=== PATIENT | female | born 1970 | race Caucasian/White ===

== ENCOUNTER 2016-12-10 09:01 | Day surgery (SDC) | payer OTHER ==
[~2016-12-10 09:01] MED LIST: LIDOCAINE MPF 2% - 5 ML (20 MG/1 ML) ONE; LIDOCAINE W/ SODIUM BICARB 0.5 ML SYR ONE; Lactated Ringers 1,000 ML PRIMARY IV ONE; MIDAZOLAM 5 MG/1 ML ONE; ROCURONIUM 10 MG/1 ML - 5 ML VIAL IVP ONE; Sodium Chloride 0.9% 100 ML IV ONE; fentaNYL Inj 250 MCG/5 ML VIAL ONE
[2016-12-10 09:15] LABS: BILIRUBIN,URINE NEGATIVE (NEG); CLARITY,URINE CLEAR (CLEAR); GLUCOSE, URINE (UA) NEGATIVE (NEG); LEUKOCYTE ESTERASE ,URINE NEGATIVE (NEG); NITRATE,URINE NEGATIVE (NEG); OCCULT BLOOD,URINE MODERATE (NEG); PROTEIN,URINE TRACE mg/dl (NEG); UROBILINOGEN,URINE 0.2 mg/dL (0.2)
[2016-12-10 09:16] LABS: URINE SPECIFIC GRAVITY - MAN 1.025
[2016-12-10 09:18] LABS: URINE SAMPLE TYPE CLEAN CATCH URINE
[2016-12-10 09:19] LABS: RBC,URINE 0-3 /hpf; SQUAMOUS EPITHELIAL CELL,UR MANY
[2016-12-10 09:42] LABS: HEMATOCRIT 32.5 % (37.0-47.0); HEMOGLOBIN 10.3 g/dL (12.0-16.0)
[2016-12-10] MEDS ORDERED: Opium-Belladonna 16.2-60mg 1 EACH SUPP.RECT RECTAL ONE ×3 (10:00→12:00)
[2016-12-10] MEDS ORDERED: LIDOCAINE HCL 2 % 10 ML JELLY URO-JECT TOPICAL ONE ×3 (10:00→12:05)
[2016-12-10] MEDS ORDERED: BUPIVACAINE 0.25% W/ EPI - 10 ML VIAL ONE (10:00)
[2016-12-10] MEDS ORDERED: DEXAMETHASONE SOD PHOSPHATE 4 MG/1 ML VIAL ONE (10:44)
[2016-12-10] MEDS ORDERED: ONDANSETRON 4 MG/2 ML VIAL ONE (10:48)
[2016-12-10] MEDS ORDERED: KETOROLAC 30 MG/1 ML VIAL ONE (10:48)
[2016-12-10] MEDS ORDERED: KETAMINE 100 MG/1 ML - 5 ML ONE (10:48)
[2016-12-10] MEDS ORDERED: HYDROmorphone 2 MG/1 ML ONE (10:48)
[2016-12-10] MEDS ORDERED: Lactated Ringers 1,000 ML PRIMARY IV ONE ×2 (11:12→11:50)
[2016-12-10] MEDS ORDERED: HYDROcodone-APAP 5 MG -325 MG TABLET PO PRN (12:11)
[2016-12-10] MEDS ORDERED: IBUPROFEN 800 MG TABLET PO PRN (12:11)
[2016-12-10] MEDS ORDERED: NORMAL SALINE 10 ML SYRINGE FLUSH IVP PRN (12:11)
[2016-12-10] MEDS ORDERED: Ondansetron ODT Tab 8 MG TAB PO PRN (12:11)
[2016-12-10] MEDS ORDERED: KETOROLAC 30 MG/1 ML VIAL IVP PRN (12:11)
--- NOTE | 2016-12-10 12:18 | OB.OP.NOTE ---
Operative Report Surgeon: Heber Knock Up Assembler: Juni Nick MD Anesthesia Type: General Anesthesia Provider: Kwaku Bonner CRNA Surgery Date: 12/10/16 Preoperative Diagnosis: MMR/Dysmenorrhea Postoperative Diagnosis: Same Procedure: da Kandice Hysterectomy/Bilateral Salpingectomy/Cystoscopy Estimated Blood Loss (mL): 50 Fluids: 3000 ml Complications: None Findings at Surgery: Slightly enlarged and boggy uterus. Normal ovaries and tubes. Dense scarring of the vesico-uterine junction. Minimal adhesions of omentum to the anterior abdominal wall just inferior to the umbilicus. No visible evidence of bowel, bladder, or ureter injury. At cystoscopy, both ureters were seen to eject urine , indicating ureteral patency and function. There was a bubble in the dome of the bladder. Indications for the Procedure: MMR/Dysmenorrhea Description of Procedure: See dictated operative report. Plan: Routine post op care and discharge to home.
[2016-12-10] MEDS ORDERED: HYDROcodone-APAP 5 MG -325 MG TABLET PO ONE (13:39)
[2016-12-10 14:46] VITALS: RESP 16
[2016-12-10 15:42] VITALS: TEMP 97.9
[2016-12-10] MEDS ORDERED: DOCUSATE 100 MG CAPSULE PO SCH (21:00)
== END 2016-12-10 15:32 | disposition home or self-care (01) ==
LOC: SDSC 09:01
PROVIDERS: ATTEND Obstetrics & Gynecology
DX: N92.1 Excessive and frequent menstruation with irregular cycle (principal); N94.6 Dysmenorrhea, unspecified; D25.9 Leiomyoma of uterus, unspecified
CPT/HCPCS: 52000; 58552; 81001; 84703; 85014; 85018; 85610; J0694; J1885; J2704; J3010; J1100; J1170; J2001; J2250; J2405; J7050; J7120

== ENCOUNTER → 2017-01-19 | Outpatient (CLI) | payer OTHER ==
[2017-01-19 17:36] LABS: BASOPHILS # (AUTO) 0.08 10*3/UL; EOSINOPHILS % (AUTO) 4.2 % (0-8); HEMATOCRIT 35.1 % (37.0-47.0); HEMOGLOBIN 11.2 g/dL (12.0-16.0); IMM GRAN % (AUTO) 0.1 % (0-5); IMM GRAN# (AUTO) 0.01 10*3/UL; LYMPHOCYTES # (AUTO) 2.57 10*3/uL; LYMPHOCYTES % (AUTO) 30.7 % (10-50); MEAN CORPUSCULAR HEMOGLOBIN 23.2 PG (27-31); MEAN CORPUSCULAR HGB CONC 31.9 g/dL (33-37); MONOCYTES # (AUTO) 0.87 10*3/UL (0.3-0.8); MONOCYTES % (AUTO) 10.4 % (5-15); NEUTROPHILS # (AUTO) 4.48 10*3/UL; NEUTROPHILS % (AUTO) 53.6 % (50-80); RDW COEFFICIENT OF VARIATION 16.4 % (11.5-14.5); RED BLOOD COUNT 4.83 10^6/uL (4.20-5.40); WHITE BLOOD COUNT 8.36 10^3/uL (4.8-10.8)
[2017-01-19 17:47] LABS: PLATELET MORPHOLOGY COMMENT NORMAL MORPHOLOGY (NORM)
[2017-01-20 05:09] LABS: PERCENT IRON SATURATION 7.8 % (14-50)
== END ==
LOC: LAB 17:21
PROVIDERS: ATTEND Internal Medicine
DX: D50.9 Iron deficiency anemia, unspecified (principal)
CPT/HCPCS: 36415; 82728; 83540; 83550; 85025

== ENCOUNTER → 2017-03-23 | Outpatient (CLI) | payer OTHER ==
[2017-03-23 19:35] LABS: MEAN CORPUSCULAR HEMOGLOBIN 25.3 PG (27-31); NEUTROPHILS # (AUTO) 4.87 10*3/UL
[2017-03-23 19:37] LABS: BASOPHILS # (AUTO) 0.12 10*3/UL; BASOPHILS % (AUTO) 1.4 % (0-1); EOSINOPHILS # (AUTO) 0.28 10*3/UL; EOSINOPHILS % (AUTO) 3.3 % (0-8); HEMATOCRIT 43.2 % (37.0-47.0); HEMOGLOBIN 14.3 g/dL (12.0-16.0); LYMPHOCYTES # (AUTO) 2.29 10*3/uL; MEAN CORPUSCULAR HGB CONC 33.1 g/dL (33-37); MEAN CORPUSCULAR VOLUME 76.5 FL (81-99); MEAN PLATELET VOLUME 9.2 FL (7.4-12.2); MONOCYTES # (AUTO) 0.93 10*3/UL (0.3-0.8); MONOCYTES % (AUTO) 10.9 % (5-15); NEUTROPHILS % (AUTO) 57.4 % (50-80); RED BLOOD COUNT 5.65 10^6/uL (4.20-5.40)
[2017-03-23 19:38] LABS: PLATELET MORPHOLOGY COMMENT NORMAL MORPHOLOGY (NORM); WBC MORPHOLOGY COMMENT NORMAL MORPHOLOGY (NORM)
[2017-03-23 19:42] LABS: RBC MORPHOLOGY COMMENT SEE COMMENTS (NORM)
== END ==
LOC: LAB 19:22
PROVIDERS: ATTEND Internal Medicine
DX: D50.9 Iron deficiency anemia, unspecified (principal)
CPT/HCPCS: 36415; 82728; 83540; 83550; 85025

== ENCOUNTER → 2017-06-22 | Outpatient (CLI) | payer OTHER ==
[2017-06-22 18:52] LABS: BASOPHILS # (AUTO) 0.06 10*3/UL; EOSINOPHILS % (AUTO) 4.8 % (0-8); HEMATOCRIT 40.1 % (37.0-47.0); HEMOGLOBIN 13.5 g/dL (12.0-16.0); LYMPHOCYTES # (AUTO) 1.83 10*3/uL; MEAN CORPUSCULAR HEMOGLOBIN 28.4 PG (27-31); MEAN CORPUSCULAR HGB CONC 33.7 g/dL (33-37); MEAN CORPUSCULAR VOLUME 84.2 FL (81-99); MEAN PLATELET VOLUME 9.4 FL (7.4-12.2); MONOCYTES # (AUTO) 0.45 10*3/UL (0.3-0.8); MONOCYTES % (AUTO) 7.2 % (5-15); NEUTROPHILS # (AUTO) 3.63 10*3/UL; NEUTROPHILS % (AUTO) 57.7 % (50-80); PLATELET MORPHOLOGY COMMENT NORMAL MORPHOLOGY (NORM); RBC MORPHOLOGY COMMENT NORMAL MORPHOLOGY (NORM); RED BLOOD COUNT 4.76 10^6/uL (4.20-5.40); WBC MORPHOLOGY COMMENT NORMAL MORPHOLOGY (NORM)
== END ==
LOC: LAB 18:32
PROVIDERS: ATTEND Internal Medicine
DX: D50.9 Iron deficiency anemia, unspecified (principal)
CPT/HCPCS: 36415; 82728; 83540; 83550; 85025

== ENCOUNTER 2018-09-16 18:35 | Observation (INO) ==
[2018-09-16] MEDS ORDERED: ASPIRIN 81 MG (BABY) CHEWABLE TABLET PO ONE (18:56)
[2018-09-16] MEDS ORDERED: Sodium Chloride 0.9% 1,000 ML PRIMARY IV ONE (18:56)
--- NOTE | 2018-09-16 18:59 | EKG ---
Measurements Intervals [place] Rate: 96 P: 66 ID: [id number] QRS: 66 QRSD: 86 T: 38 QT: 331 QTc: 385 Interpretive Statements SINUS RHYTHM Compared to ECG 11/05/2014 13:03:59 No significant changes Electronically Signed On 09-17-18 12:21:15 MDT by Tad Whitlock [id number]
[2018-09-16 19:02] LABS: BASOPHILS # (AUTO) 0.06 10*3/UL; BASOPHILS % (AUTO) 0.6 % (0-1); EOSINOPHILS # (AUTO) 0.14 10*3/UL; EOSINOPHILS % (AUTO) 1.3 % (0-8); Hematocrit [HCT] 43.2 % (37.0-47.0); Hemoglobin [HGB] 14.4 g/dL (12.0-16.0); LYMPHOCYTES # (AUTO) 2.32 10*3/uL; MEAN CORPUSCULAR HEMOGLOBIN 27.5 PG (27-31); MEAN CORPUSCULAR HGB CONC 33.3 g/dL (33-37); MEAN CORPUSCULAR VOLUME 82.6 FL (81-99); MEAN PLATELET VOLUME 9.7 FL (7.4-12.2); MONOCYTES # (AUTO) 0.77 10*3/UL (0.3-0.8); MONOCYTES % (AUTO) 7.4 % (5-15); NEUTROPHILS # (AUTO) 7.11 10*3/UL; NEUTROPHILS % (AUTO) 68.2 % (50-80); RED BLOOD COUNT 5.23 10^6/uL (4.20-5.40)
[2018-09-16 19:05] LABS: PLATELET MORPHOLOGY COMMENT NORMAL MORPHOLOGY (NORM); RBC MORPHOLOGY COMMENT NORMAL MORPHOLOGY (NORM); WBC MORPHOLOGY COMMENT NORMAL MORPHOLOGY (NORM)
[2018-09-16 19:11] LABS: BLOOD UREA NITROGEN 11 mg/dL (7-22); BUN/CREATININE RATIO 13.75 (6-20); SERUM ALBUMIN 4.5 g/dL (3.5-4.8)
--- NOTE | 2018-09-16 19:46 | DI ---
EXAM: XR Chest, 1 View CLINICAL HISTORY: ITS.REASON Chest Pain Physician Notes: Tech Comments: TECHNIQUE: Frontal view of the chest. COMPARISON: 08/11/14 FINDINGS: Lungs: Unremarkable. No consolidation. Pleural space: Unremarkable. No pneumothorax. Heart: Unremarkable. No cardiomegaly. Mediastinum: Unremarkable. Bones/joints: Unremarkable. IMPRESSION: No evidence of acute pulmonary disease
[2018-09-16] MEDS ORDERED: NITROGLYCERIN 0.4 MG SL TAB (BOTTLE OF 3) SL ONE (20:29)
[2018-09-16] MEDS ORDERED: MORPHINE SULFATE 4 MG/1 ML IVP ONE (20:29)
--- NOTE | 2018-09-16 20:33 | PDOC ---
HPI - History of Present Illness History of Present Illness: This very nice 48-year-old female who comes in with chest pain. She has a history of pulmonary embolus on anticoagulation no etiology was found after of bowl of macaroni and cheese today patient started having some left upper chest pain did not get better he got worse throughout the day and decided to come to the ER. Her first troponin is negative CT scan of the chest the revealed no PE will be admitted for rule out pain is improved at present time but still present Past Medical History Medical History: Bilateral pulmonary emboli on anticoagulation In the Past 12 Months, Have Used or Abuse Any of the Following Substance: None Medication / Allergies Home Medications: Home Medications 3 Medication Instructions Recorded Confirmed Type Rivaroxaban [Xarelto] 20 mg PO DAILY #90 tab 06/28/15 09/16/18 History estradiol 0.05 mg/24 hr weekly 1 patch TRANSDERM WEEKLY #12 patch 05/12/1809/16 Rx transdermal patch Allergies/Adverse Reactions: Allergies 3 Allergy/AdvReac Type Severity Reaction Status Date / Time No Known Allergies Allergy Verified 09/16/18 21:20 Review of Systems - Review of Systems All Systems: Reviewed & No Additional Complaints Except as Stated - Cardiovascular Cardiovascular: REPORTS: Chest Pain - Gastrointestinal Gastrointestinal / Abdominal: REPORTS: Heartburn. DENIES: Negative System Review, Nausea, Vomiting, Diarrhea, Constipation, Abdominal Pain, Bloody Stool, Poor Appetite, Regurgitation, Bloating, Lactose Intolerance, Melena, Bright Red Blood per Rectum, Other, See HPI Exam - Vitals Vital Signs: Vital Signs Temperature 97.9 F Temperature Source Temporal Artery Scan Pulse Rate [Pulse Oximeter] 101 Respiratory Rate 18 Blood Pressure [Right Arm] 135/106 Pulse Ox 97 Oxygen Delivery Method Room Air Height 5 ft 5 in Weight 240 lb - General General Appearance: No Acute Distress, Cooperative - Respiratory Respiratory Exam: POSITIVE: Clear to Auscultation - Bilaterally, Breathing Non Labored, Normal To Percussion, Normal to Percussion and Palpation - Cardiovascular Cardiovascular Exam: POSITIVE: RRR, No Murmur, No Clicks, No Gallops, No Rubs, PMI Non-Displaced - GI/Abdominal GI/Abdominal Exam: POSITIVE: Normal Bowel Sounds, Non Tender, Non Distended, Soft, No Masses, No Hepatomegaly, No Splenomegaly, No Organomegaly - Extremities Extremities Exam: POSITIVE: Normal Inspection, Full ROM, Normal Capillary Refill , No Clubbing Present, No Edema Present, No Cyanosis Present, Negative William's sign, Dosalis Pedis Pulses - Stong & Regular Results - Labs CBC and BMP: 09/16/18 18:45 09/16/18 18:45 Assessment and Plan - Patient Problems (1) Chest pain Current Visit: Yes Status: Acute Comment: Negative troponin and negative CT of the chest no PE we'll get troponins 3 and a Lexiscan scan stress test Code(s): R07.9 - Chest pain, unspecified (2) Hypercoagulopathy Current Visit: No Status: Acute Onset Date: 10/19/16 Comment: Continue anticoagulation Code(s): D68.59 - Other primary thrombophilia
[2018-09-16] MEDS ORDERED: Belladon/PHENobarbital Elixir 10 ML, Lidocaine Viscous Liquid 2% 15 ML, Mag Hyd/Al Hyd/... PO ONE ×6 (20:44→22:45)
--- NOTE | 2018-09-16 22:20 | DI ---
EXAM: CT Angiography Chest With Intravenous Contrast CLINICAL HISTORY: ITS.REASON CHEST PAIN Physician Notes: Tech Comments: TECHNIQUE: Axial computed tomographic angiography images of the chest with intravenous contrast using pulmonary embolism protocol. MIP reconstructed images were created and reviewed. COMPARISON: No relevant prior studies available. FINDINGS: Pulmonary arteries: Unremarkable. No pulmonary embolism. Aorta: No acute findings. No thoracic aortic aneurysm. Lungs: Multiple dependent atelectasis. Pleural space: Unremarkable. No significant effusion. No pneumothorax. Heart: No significant pericardial effusion. Bones/joints: No acute fracture. No dislocation. Soft tissues: Unremarkable. Lymph nodes: Unremarkable. No enlarged lymph nodes. IMPRESSION: No pulmonary embolism. No acute pulmonary infiltrate.
[2018-09-16] MEDS ORDERED: PANTOPRAZOLE 40 MG TABLET PO ONE (22:44)
[2018-09-16] MEDS ORDERED: ONDANSETRON 4 MG/2 ML VIAL IVP PRN (22:44)
[2018-09-16] MEDS ORDERED: DOCUSATE 100 MG CAPSULE PO PRN (22:44)
[2018-09-16] MEDS ORDERED: ACETAMINOPHEN 325 MG TABLET PO PRN (22:44)
[2018-09-16] MEDS ORDERED: LIDOCAINE W/ SODIUM BICARB 0.5 ML SYR SUBD PRN (22:44)
[2018-09-16] MEDS ORDERED: CALCIUM CARBONATE 500 MG (TUMS) CHEWABLE TABLET PO PRN (22:44)
[2018-09-16] MEDS ORDERED: Influenza 18-19 Vaccine (6mo+) 60 MCG/0.5 ML SYRINGE IM ONE (23:01)
[2018-09-16] MEDS: Rivaroxaban Tab 10 MG TAB PO SCH (23:45)
--- NOTE | 2018-09-17 01:11 | PDOC ---
Chest Pain HPI - General Chief Complaint: Chest Pain Stated Complaint: CHEST PAIN Date Seen by Provider: 09/16/18 Time Seen by Provider: 18:50 Source: Patient Exam Limitations: POSITIVE: No limitations Treatment Prior to Arrival: REPORTS: None Nurse's Notes Reviewed & Considered: Yes - History of Present Illness Initial Comments: The patient is a 48-year-old female. She presents to the emergency room by private auto. Patient states that since around 11 AM, 7-8 hours [employer] she has had pain in her left anterior thorax which she describes as "a burning ache". She states that this pain sometimes radiates into her left shoulder. Patient has a history of pulmonary emboli and is on Xerelto. 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 Onset was fairly abrupt. She denies any dyspnea. No cough. No pleuritis. No GI or symptoms. No neurologic symptoms. Body Location Affected: REPORTS: Chest Timing: REPORTS: Abrupt Duration: <24 hours Severity: Moderate Persistent/Worse since (date): 09/16/18 Persistent/Worse since (time): 11:00 Context: REPORTS: Activity (Working on a computer) Quality: REPORTS: Aching, Burning Radiation: REPORTS: Shoulder (L) Associated Symptoms: DENIES: Nausea, Vomiting, Diaphoresis, Shortness of Breath , Hurts to Breathe, Palpitations, Productive Cough (blood), Productive Cough ( sputum), Weakness, Dizziness Modifying Factors: improves with: None Reported Similar Symptoms Previously: No Recently seen/treated/hospitalized: No Any Prior Injuries Related to Current Complaint?: No - Patient Home Medications Home Medications: Home Medications Rivaroxaban [Xarelto] 20 mg PO DAILY #90 tab 06/28/15 estradiol 0.05 mg/24 hr weekly transdermal patch 1 patch TRANSDERM WEEKLY #12 patch 05/12/18 - Patient Allergies Allergies/Adverse Reactions: Allergies 3 Allergy/AdvReac Type Severity Reaction Status Date / Time No Known Allergies Allergy Verified 09/16/18 21:20 Past Medical History - heen HEENT History: Denies History Cardiovascular History: Denies History Respiratory History: Pulmonary Embolism, Other (please comment) Additional Respiratory History: BILAT PE (08/11/2014) Gastrointestinal History: Denies History Genitourinary History: Denies History Endocrine History: Denies History Musculoskeletal History: Denies History Prosthesis or Implant: No Additional Musculoskeletal History: Hx of bilateral ACL repairs. Neurological History: Denies History Blood Disorders: Denies History Additional Blood Disorders History: on eliquis Psychiatric History: Denies History History of Sexually Transmitted Diseases: No Female Reproductive History: Hysterectomy Obstetrical History: Delivery Cancer History: Denies History In Past Year Been Physically Harmed or Verbally Threatened: No History of MDRO: No History of Other Communicable Diseases: No Tobacco Use: Never Smoker Alcohol Use: Occasionally Type of alcohol normally used: Beer In the Past 12 Months, Have Used or Abuse Any Substance: None Previous Surgical History: Yes Type / Date of Surgery: APPY, 2 RT KNEE ACL MCL RECONSTRUCT, FX LT ARM, 2 C SECTIONS, WISDOM TEETH PULLED. Back surgery on Jul 04, 2018 in [place], [place] Anesthesia Reactions: No Malignant Hyperthermia: No Significant Family History: Heart disease, Cancer, Diabetes, Hypertension Past Medical History Reviewed: Reviewed - No Changes ROS - Limitations ROS Limitations: No Limitations Constitution: REPORTS: Denies Symptoms Cardiovascular: REPORTS: Chest Pain Respiratory: REPORTS: Denies Resp Symptoms Neurological: REPORTS: Denies Neuro Symptoms Gastrointestinal: REPORTS: Denies GI Symptoms Endocrine: REPORTS: Denies Symptoms Musculoskeletal: REPORTS: Denies MS Symptoms Genitourinary: REPORTS: Denies Symptoms Eyes: REPORTS: Denies Symptoms ENT: REPORTS: Denies Symptoms Skin: REPORTS: Denies Skin Symptoms Lympathic: REPORTS: Denies Lympathic Symptoms Immunologic: POSITIVE: Denies Symptoms Psychiatric: POSITIVE: Denies Psych Symptoms Chest Pain PE - General Appearance General Appearance: REPORTS: Alert, Cooperative, No Acute Distress, No Evidence of Trauma - HEENT HEENT: POSITIVE: Head Inspection Nml, Eyes Inspection Nml, Ears Inspection Nml, Nose Inspection Nml, Oral/Dental Inspect. Nml, Pharynx Inspect. Nml, PERRL, EOMI - Neck Neck: REPORTS: Normal Inspection, No Carotid Bruit - Respiratory Respiratory: REPORTS: No Respiratory Distress, Breath Sounds Normal, Chest Non- Tender - Cardiovascular Cardiovascular: REPORTS: Regular Rate and Rhythm, Heart Sounds Normal, Equal Pulses, Strong Pulses, No Murmur, No Gallop, No Friction Rub, No JVD Peripheral Pulses: Radial (R): 2+, Radial (L): 2+ - Abdomen Abdomen: Soft: (All Quadrants), Normal Bowel Sounds: (All Quadrants), Denies Tenderness: (All Quadrants), No Splenomegaly: (All Quadrants), No Hepatomegaly: (All Quadrants), No Guarding: (All Quadrants), No Rebound: (All Quadrants), No Palpable Pulse: (All Quadrants), No Palpabale Mass: (All Quadrants), No Distention: (All Quadrants), No Rigidity: (All Quadrants) - Skin Skin: REPORTS: Intact, Normal For Race, Warm, Dry, No Rash - Extremities Extremity: Non-Tender: (All Extremities), Normal ROM: (All Extremities), Normal Inspection: (All Extremities) - Neurological / Psychological Neurological: POSITIVE: Affect Apporpriate, Oriented X3, rehab spec Normal As Tested, Motor Normal, Sensation Normal Images - Complete Complete: 1 - Chest pain Chest Pain Progress - Results Reviewed by me Xrays/CTs/US Reviewed by me: Yes Discussed with Radiologist: Yes Radiology Findings: Chest x-ray normal; CTA chest normal. Lab Results Reviewed by Me: Yes CBC and BMP: 09/16/18 18:45 09/16/18 18:45 Lab Results:: Laboratory Results 3 09/16/18 09/16/18 09/16/18 18:45 18:45 18:45 WBC 10.42 RBC 5.23 Hgb 14.4 Hct 43.2 MCV 82.6 MCH 27.5 MCHC 33.3 RDW Std Deviation 42.2 RDW Coeff of Kunal 14.0 Plt Count 357 H MPV 9.7 Immature Gran % (Auto) 0.2 Neut % (Auto) 68.2 Lymph % (Auto) 22.3 [place] % (Auto) 7.4 Eos % (Auto) 1.3 Baso % (Auto) 0.6 Immature Gran # (Auto) 0.02 Neut # (Auto) 7.11 Lymph # (Auto) 2.32 [place] # (Auto) 0.77 Eos # (Auto) 0.14 Baso # (Auto) 0.06 WBC Morphology Comment Normal morphology Plt Morphology Comment Normal morphology RBC Morph Comment Normal morphology PT INR APTT D-Dimer 0.28 Sodium 141 Potassium 3.9 Chloride 109 Carbon Dioxide 24 Anion Gap 8 BUN 11 Creatinine 0.8 Estimated GFR > 60 BUN/Creatinine Ratio 13.75 Glucose 102 Calculated Osmolality 290.0 Calcium 10.6 Total Bilirubin 0.5 AST 26 ALT 20 Alkaline Phosphatase 112 CK-MB (CK-2) Troponin I Total Protein 8.0 Albumin 4.5 Globulin 3.5 Albumin/Globulin Ratio 1.20 L 3 09/16/18 09/16/18 18:45 18:45 WBC RBC Hgb Hct MCV MCH MCHC RDW Std Deviation RDW Coeff of Kunal Plt Count MPV Immature Gran % (Auto) Neut % (Auto) Lymph % (Auto) [place] % (Auto) Eos % (Auto) Baso % (Auto) Immature Gran # (Auto) Neut # (Auto) Lymph # (Auto) [place] # (Auto) Eos # (Auto) Baso # (Auto) WBC Morphology Comment Plt Morphology Comment RBC Morph Comment PT 11.7 H INR 1.13 APTT 33.4 D-Dimer Sodium Potassium Chloride Carbon Dioxide Anion Gap BUN Creatinine Estimated GFR BUN/Creatinine Ratio Glucose Calculated Osmolality Calcium Total Bilirubin AST ALT Alkaline Phosphatase CK-MB (CK-2) 0.35 Troponin I < 0.012 Total Protein Albumin Globulin Albumin/Globulin Ratio EKG Interpreted/Reviewed By Me:: Yes (normal) EKG Interpretation:: POSITIVE: Normal Sinus Rhythm, Normal Rate, Normal Intervals, Normal [place], Normal QRS - Patient's Progress Pain Medication Addressed: POSITIVE: Yes (GI cocktail, nitroglycerin, morphine sulfate) School/Work Release Addressed: POSITIVE: Not Applicable Re-Examine Time: 20:30 Re-Examine Comment: Unchanged. Results of laboratory evaluation, electrocardiogram and radiologic studies discussed with patient and patient's father. Alternatives of treatment discussed. Patient admitted by hospitalist for further evaluation and treatment as necessary. Status: POSITIVE: Unchanged, Re-Examined Quality Measure Initiative: CP/AMI: POSITIVE: EKG, ASA - Consult Consult (If Yes, Name of Consulting MD & Time Called): Yes (Dr. Fitzpatrick, hospitalist, 2030) Consulting MD will see pt:: POSITIVE: [facility] Admit Counseled: POSITIVE: Patient, Family, RE: Lab Results, RE: Radiology Results, RE : DX, RE: Need for F/U Patient Care Time - Estimated PCT Patient Care Time (In Minutes): 45 Vital Signs - Recent Vital Signs Vital Signs: Vital Signs (Last 8 hours) Temp Pulse Pulse Resp BP BP Pulse Ox 09/16/18 23:55 72 10/19/18 22:51 83 18 09/16/18 22:35 97.6 F 64 24 138/86 95 09/16/18 18:35 97.9 F 101 H 101 H 18 135/106 97 - VS Reviewed Vital Signs Reviewed: Yes Discharge Clinical Impression: Chest pain Discharge Disposition: Admit to Inpatient Condition: Stable Date Decision to Admit to Inpatient: 09/16/18 Time Decision to Admit to Inpatient: 20:30
[2018-09-17] MEDS: MORPHINE SULFATE 2 MG/1 ML IVP PRN ×3 (01:38→20:44)
[2018-09-17 05:39] LABS: BASOPHILS # (AUTO) 0.04 10*3/UL; BASOPHILS % (AUTO) 0.6 % (0-1); EOSINOPHILS # (AUTO) 0.26 10*3/UL; EOSINOPHILS % (AUTO) 3.9 % (0-8); Hematocrit [HCT] 40.7 % (37.0-47.0); MEAN CORPUSCULAR HEMOGLOBIN 27.1 PG (27-31); MEAN CORPUSCULAR HGB CONC 31.9 g/dL (33-37); MEAN CORPUSCULAR VOLUME 84.8 FL (81-99); MEAN PLATELET VOLUME 9.5 FL (7.4-12.2); MONOCYTES # (AUTO) 0.52 10*3/UL (0.3-0.8); MONOCYTES % (AUTO) 7.7 % (5-15)
[2018-09-17 05:42] LABS: PLATELET MORPHOLOGY COMMENT NORMAL MORPHOLOGY (NORM); RBC MORPHOLOGY COMMENT NORMAL MORPHOLOGY (NORM); WBC MORPHOLOGY COMMENT NORMAL MORPHOLOGY (NORM)
[2018-09-17 05:57] LABS: BLOOD UREA NITROGEN 13 mg/dL (7-22); BUN/CREATININE RATIO 16.25 (6-20); SERUM ALBUMIN 3.5 g/dL (3.5-4.8)
--- NOTE | 2018-09-17 11:52 | PDOC(PROG) ---
Interval History: Patient is doing great sternal some mild chest pain 1 out of 10 troponins remain negative I'll likely this will be her heart most likely heartburn or gastritis at this point she did have her first part of her stress test we are waiting for the pictures and the second part Objective : Data - Labs CBC and BMP: 09/17/18 05:16 09/17/18 05:16 Objective : Exam - General General Appearance: Cooperative - Respiratory Respiratory Exam: Clear to Auscultation - Bilaterally, Breathing Non Labored, Normal To Percussion, Normal to Percussion and Palpation - Cardiovascular Cardiovascular Exam: RRR, No Murmur, No Clicks, No Gallops, No Rubs, PMI Non- Displaced - GI/Abdominal GI/Abdominal Exam: Normal Bowel Sounds, Non Tender, Non Distended, Soft, No Masses, No Hepatomegaly, No Splenomegaly, No Organomegaly - Extremities Extremities Exam: No Clubbing Present, No Edema Present, No Cyanosis Present - Neurological Neurological Exam: Alert, No Facial Droop, Speech Intact / Clear, Moves All Extremities Equally Assessment and Plan - Patient Problems (1) Chest pain Current Visit: Yes Status: Acute Comment: Await for stress test results start Protonix 40 mg daily Code(s): R07.9 - Chest pain, unspecified (2) Hypercoagulopathy Current Visit: No Status: Acute Onset Date: 10/19/16 Code(s): D68.59 - Other primary thrombophilia
[2018-09-17] MEDS ORDERED: Belladon/PHENobarbital Elixir 10 ML, Lidocaine Viscous Liquid 2% 15 ML, Mag Hyd/Al Hyd/... PO ONE ×3 (14:15)
[2018-09-17] MEDS ORDERED: BELLADONNA ALKALOIDS/PHENOBARB 32.4 MG/10 ML PO ONE (14:55)
[2018-09-17] MEDS ORDERED: MAG HYDROX/AL HYDROX/SIMETH 30 ML SUSP PO ONE (14:58)
[2018-09-17] MEDS ORDERED: LIDOCAINE 2% VISCOUS(20 MG/1 ML) - 15 ML UD CUP PO ONE (14:58)
[2018-09-17] MEDS: PANTOPRAZOLE 40 MG TABLET PO SCH (14:59)
[2018-09-17] MEDS ORDERED: Rivaroxaban Tab 10 MG TAB PO SCH (17:00)
[2018-09-17] MEDS ORDERED: MORPHINE SULFATE 2 MG/1 ML IVP ONE (17:12)
--- NOTE | 2018-09-17 18:36 | DI ---
EXAM: US Abdomen Complete CLINICAL HISTORY: chest pain TECHNIQUE: Real-time ultrasound of the abdomen (complete) with image documentation. COMPARISON: No relevant prior studies available. FINDINGS: Limitations: Body habitus. Liver: The liver is normal in size and smooth in contour. Diffusely increased hepatic echogenicity is suggestive of diffuse hepatic steatosis. No focal hepatic lesions. No intrahepatic bile duct dilation. Gallbladder: Partially contracted gallbladder. No gallstones, gallbladder wall thickening, or pericholecystic fluid. Sonographic Desir sign is negative. Common bile duct: Unremarkable as visualized. No stones. No dilation. Pancreas: Not well-seen. Kidneys: Unremarkable. No stones. No solid mass. No hydronephrosis. Spleen: Unremarkable. No splenomegaly. Aorta: Unremarkable. No aneurysm. Inferior vena cava: Unremarkable. IMPRESSION: No acute findings. Diffuse hepatic steatosis.
--- NOTE | 2018-09-17 19:15 | DI ---
EXAM: XR Abdomen, 2 Views CLINICAL HISTORY: Epigastric pain TECHNIQUE: Frontal view of the abdomen/pelvis with upright view of the abdomen. COMPARISON: US abdomen 09/17/2018 FINDINGS: Intraperitoneal space: No pneumatosis or pneumoperitoneum. Gastrointestinal tract: Nonobstructive bowel gas pattern. Stool and gas are present throughout the nondilated colon. Bones/joints: Unremarkable. IMPRESSION: No acute findings.
[2018-09-17] MEDS: Rivaroxaban Tab 10 MG TAB PO SCH (20:16)
[2018-09-18] MEDS: PANTOPRAZOLE 40 MG TABLET PO SCH (07:14)
[2018-09-18 09:36] LABS: BASOPHILS # (AUTO) 0.07 10*3/UL; BASOPHILS % (AUTO) 0.9 % (0-1); EOSINOPHILS # (AUTO) 0.26 10*3/UL; EOSINOPHILS % (AUTO) 3.4 % (0-8); Hematocrit [HCT] 47.3 % (37.0-47.0); Hemoglobin [HGB] 15.8 g/dL (12.0-16.0); MEAN CORPUSCULAR HEMOGLOBIN 27.9 PG (27-31); MEAN CORPUSCULAR HGB CONC 33.4 g/dL (33-37); MEAN CORPUSCULAR VOLUME 83.4 FL (81-99); MEAN PLATELET VOLUME 9.3 FL (7.4-12.2); MONOCYTES # (AUTO) 0.66 10*3/UL (0.3-0.8); MONOCYTES % (AUTO) 8.6 % (5-15); NEUTROPHILS # (AUTO) 4.95 10*3/UL; NEUTROPHILS % (AUTO) 64.6 % (50-80); RED BLOOD COUNT 5.67 10^6/uL (4.20-5.40)
[2018-09-18 09:37] LABS: PLATELET MORPHOLOGY COMMENT NORMAL MORPHOLOGY (NORM); RBC MORPHOLOGY COMMENT NORMAL MORPHOLOGY (NORM); WBC MORPHOLOGY COMMENT NORMAL MORPHOLOGY (NORM)
[2018-09-18 09:48] LABS: BLOOD UREA NITROGEN 11 mg/dL (7-22); BUN/CREATININE RATIO 12.22 (6-20); SERUM ALBUMIN 4.4 g/dL (3.5-4.8)
[2018-09-18 09:49] LABS: LIPASE 86 IU/L (23-300)
--- NOTE | 2018-09-18 12:32 | DI ---
2 DAY LEXISCAN STRESS & REST MYOCARDIAL PERFUSION SCANS, 09/17/2018-09/18/2018: Clinical History: Chest pain. Previous Exam: None at this facility. Monitoring Physician: Dr. Tesfaye Fitzpatrick. Dose: Stress dose: 36 mCi on 09/17/2018. Rest dose: 37 mCi on 09/18/2018.. Quantitative Analysis: [employer] program with low dose limited CT chest scan attenuation correctio n. Exam Quality: Excellent. Rejected Beats: Stress = 3%; Rest = 0%. HR: Stress = 77-84 b/m; Rest = 70-8 0 b/m. Left ventricular chamber sizes are normal at stress and rest. Transient ischemic dilatation ratio is 1.06 (normal Nestor TID <= 1.22; normal Lexiscan TID <= 1.33). Stress LVEF: 67%; rest LVEF: 72%. The n on-attenuated and attenuated corrected scans show apical thinning. Stress and rest myocardial effusio n, wall motion, and thickening are normal. Limited CT scans of the heart show no coronary artery calc ifications. There are no lung nodules or enlarged nodes. There is diffuse mild to moderate fatty infi ltration of the liver. Readin. Normal stress and rest left ventricular chamber size. Transient dysphasia is normal at 1.06. 2. Normal stress and rest LVEF values of 67% and 72%, respectively. 3. Normal stress and rest myocardial perfusion, wall motion, and thickening. 4. There are no coronary artery indications. No lung nodules or adenopathy are seen. 5. Fatty infiltration of the liver.
--- NOTE | 2018-09-18 12:52 | DCSUMMARY ---
Hospitalization Summary Hospital Course: Final Discharge Diagnosis: Current Visit Problems Problem Status Onset Code Chest pain Acute R07.9 Chest pain Acute R07.9 Diagnostic Data, Laboratory Data, and Procedures of Signifigance: Laboratory Results 09/18/18 09/18/18 09/18/18 Range/Units 09:20 09:20 09:20 WBC 7.66 (4.8-10.8) 10^3/uL RBC 5.67 H (4.20-5.40) 10^6/uL Hgb 15.8 (12.0-16.0) g/dL Hct 47.3 H (37.0-47.0) % MCV 83.4 (81-99) FL MCH 27.9 (27-31) PG MCHC 33.4 (33-37) g/dL RDW Std Deviation 43.8 (39-50) fL RDW Coeff of Kunal 14.5 (11.5-14.5) % Plt Count 310 (140-350) 10*3/uL MPV 9.3 (7.4-12.2) FL Immature Gran % (Auto) 0.3 (0-5) % Neut % (Auto) 64.6 (50-80) % Lymph % (Auto) 22.2 (10-50) % [place] % (Auto) 8.6 (5-15) % Eos % (Auto) 3.4 (0-8) % Baso % (Auto) 0.9 (0-1) % Immature Gran # (Auto) 0.02 10*3/UL Neut # (Auto) 4.95 10*3/UL Lymph # (Auto) 1.70 10*3/uL [place] # (Auto) 0.66 (0.3-0.8) 10*3/UL Eos # (Auto) 0.26 10*3/UL Baso # (Auto) 0.07 10*3/UL WBC Morphology Comment Normal morphology (NORM) Plt Morphology Comment Normal morphology (NORM) RBC Morph Comment Normal morphology (NORM) Sodium 142 (135-145) meq/L Potassium 4.4 (3.8-5.2) meq/L Chloride 110 (98-112) meq/L Carbon Dioxide 22 L (23-33) meq/L Anion Gap 10 (5-20) BUN 11 (7-22) mg/dL Creatinine 0.9 (0.50-1.20) mg/dL Estimated GFR > 60 (>60 ml/min/1.73m(2)) BUN/Creatinine Ratio 12.22 (6-20) Glucose 99 (78-110) mg/dL Calculated Osmolality 292.0 (267-292) mOsm/kg Calcium 9.5 (8.7-10.7) mg/dL Total Bilirubin 0.6 D (0.3-1.2) mg/dL AST 26 (8-39) IU/L ALT 13 (9-52) IU/L Alkaline Phosphatase 99 (38-126) IU/L Total Protein 8.2 H (6.1-8.0) g/dL Albumin 4.4 (3.5-4.8) g/dL Globulin 3.8 (2.50-4.10) g/dL Albumin/Globulin Ratio 1.10 L (1.3-2.0) mg/g Amylase 66 (30-110) U/L Lipase 86 (23-300) IU/L History and Physical pertinent to Admission: Course of Hospitalization: On the date of discharge, the patient was examined: Gen.: [No acute distress, alert, nontoxic] Heart: [Regular rate and rhythm, no murmurs, clicks, gallops, or rubs] Lungs: [Clear to auscultation bilaterally, breathing is nonlabored] Abdomen/GI: [Normal tones on auscultation, soft, nontender, nondistended] Musculoskeletal/extremities: [No clubbing, cyanosis, or edema] Vitals reviewed and are listed below Vital Signs (24 hrs) Temp Pulse Pulse Resp BP BP Pulse Ox 09/18/18 12:15 97.9 F 84 24 118/72 95 09/18/18 11:00 80 09/18/18 07:38 97.7 F 77 16 118/78 92 09/18/18 07:00 71 09/18/18 04:23 97.1 F 74 18 129/84 97 09/18/18 03:00 82 09/18/18 00:08 98 F 81 18 111/79 95 09/17/18 23:00 80 09/17/18 20:19 98.1 F 70 20 125/70 96 09/17/18 19:00 77 70 09/17/18 15:50 97.5 F 91 18 127/85 94 09/17/18 15:00 84 Assessment and Plan: 1. As per discharge assessments above 2. Disposition: 3. Condition on discharge, stable and improved. 4. Diet: regular diet 5. Activities: resume normal activities 6. Follow-Up: 1. [PCP] 2. 7. Medications at the Time of Discharge: 8. Time, care, counseling and coordination of care for this discharge is greater than 30 minutes. Exam - Vitals Vital Signs: Vital Signs Temperature 97.9 F Temperature Source Temporal Artery Scan Pulse Rate [Pulse Oximeter] 84 Pulse Rate 80 Respiratory Rate 24 Blood Pressure [Left Arm] 118/72 Blood Pressure [Right Arm] 118/78 Blood Pressure 130/89 Pulse Ox 95 Oxygen Flow Rate 1 Oxygen Delivery Method Room Air Height 5 ft 6 in Weight 242 lb Patient Problems - Patient Problem List (1) Chest pain Current Visit: Yes Status: Acute Code(s): R07.9 - Chest pain, unspecified Category: Medical (2) Hypercoagulopathy Current Visit: No Status: Acute Onset Date: 10/19/16 Code(s): D68.59 - Other primary thrombophilia Category: Medical
--- NOTE | 2018-09-18 12:58 | EKG ---
[address] [address] Measurements Intervals [place] Rate: 85 P: 57 CT: 141 QRS: 60 QRSD: 82 T: 42 QT: 355 QTc: 398 Interpretive Statements SINUS RHYTHM WITH OCCASIONAL VENTRICULAR PREMATURE COMPLEXES Compared to ECG 09/16/2018 18:40:34 Ventricular premature complex(es) now present Electronically Signed On 09-18-18 17:05:56 MDT by Tad Whitlock [id number]
[2018-09-18] MEDS: methylPREDNISolone 40 MG/1 ML VIAL IVP SCH ×2 (14:35→20:26)
[2018-09-18] MEDS: Rivaroxaban Tab 10 MG TAB PO SCH (20:26)
[2018-09-19] MEDS: methylPREDNISolone 40 MG/1 ML VIAL IVP SCH ×2 (02:37→09:36)
[2018-09-19] MEDS: PANTOPRAZOLE 40 MG TABLET PO SCH (07:22)
[2018-09-19 07:52] VITALS: O2SAT 95
[2018-09-19] MEDS ORDERED: predniSONE Tab 20 MG TAB PO SCH (09:00)
--- NOTE | 2018-09-19 09:58 | PDOC(PROG) ---
Date of Service: 09/18/18 Interval History: Patient is in good spirits. Complaining some of some left upper chest pain that comes and goes no pain on deep inspiration hard for her to describe. It is much better than when she came in Objective : Data - Labs CBC and BMP: 09/18/18 09:20 09/18/18 09:20 Assessment and Plan - Patient Problems (1) Chest pain Current Visit: Yes Status: Acute Comment: I will determine etiology. Lexiscan stress test was negative, KUB negative, abdominal ultrasound negative, just showed contracted gallbladder, CT of the chest no PE. Patient is on Balta twice a day for possible gastritis seems to have helped a little but not much 2 EKGs performed no signs of pericarditis. I am unable to give this to NSAIDs secondary to she is on anticoagulation I will try steroids for possible viral pleurisy and see how she does. We will try to order HIDA scan of her gallbladder this is may be all gallbladder disease in a.m. patient agrees and understands discussed with nursing as well which also agrees spoke to the patient's dad as well Code(s): R07.9 - Chest pain, unspecified (2) Hypercoagulopathy Current Visit: No Status: Acute Onset Date: 10/19/16 Code(s): D68.59 - Other primary thrombophilia
[2018-09-19 11:13] VITALS: BP 138/82; RESP 24; TEMP 98.4
--- NOTE | 2018-09-19 11:18 | DCSUMMARY ---
Hospitalization Summary Hospital Course: Final Discharge Diagnosis: Current Visit Problems Problem Status Onset Code Chest pain Acute R07.9 Chest pain Acute R07.9 Most likely pleurisy viral Diagnostic Data, Laboratory Data, and Procedures of Signifigance: History and Physical pertinent to Admission: Course of Hospitalization: Is a very nice 48-year-old female with past medical history significant for pulmonary emboli on anticoagulation. Admitted for chest pain left upper chest. Lexiscan stress test negative, KUB negative CT chest negative, right upper quadrant ultrasound negative pain still persisted 2 EKGs did not reveal pericarditis could not give NSAIDs because of her anticoagulation will be had a trial of prednisone overnight chest pain totally disappeared this morning patient has been walking at a fast pacer around the hallways 6 or 7 times patient feels back to her normal self and pain is resolved most likely viral pleurisy we'll give prednisone 40 mg for 3 more days then stop. If the pain should reappear I told her to go to her primary care physician for repeat EKG or go to the ER she understands and is very happy with her care and the workup. On the date of discharge, the patient was examined: Gen.: No acute distress, alert, nontoxic Heart: Regular rate and rhythm, no murmurs, clicks, gallops, or rubs Lungs: Clear to auscultation bilaterally, breathing is nonlabored Abdomen/GI: Normal tones on auscultation, soft, nontender, nondistended Musculoskeletal/extremities: No clubbing, cyanosis, or edema Vitals reviewed and are listed below Vital Signs (24 hrs) Temp Pulse Pulse Pulse Resp BP Pulse Ox 09/19/18 11:00 98.4 F 98 24 138/82 95 09/19/18 07:47 97.1 F 80 80 20 130/77 95 09/19/18 07:00 77 78 09/19/18 04:47 97.8 F 78 16 132/74 93 09/19/18 03:00 85 09/19/18 00:08 97.7 F 86 18 115/83 96 09/18/18 23:00 107 H 09/18/18 20:13 98.4 F 111 H 18 109/90 94 09/18/18 19:00 105 H 09/18/18 16:37 97.7 F 86 24 114/65 95 09/18/18 15:00 86 09/18/18 12:15 97.9 F 84 24 118/72 95 Intake and Output (24hr x 4 totals) 09/16/18 09/17/18 09/18/18 09/19/18 11:59 11:59 11:59 11:59 Intake Total 200 / 200 1440 / 1440 2340 / 2340 Output Total 1100 / 1100 1450 / 1450 3550 / 3550 Balance -900 / -900 -10 / -10 -1210 / -1210 Weight Obtain Weight Start: 09/16/18 22: 44 Freq: ADMIT Status: Active Protocol: Document 09/16/18 22:35 [id number] (Rec: 09/16/18 23:20 [id number]) Obtain Weight Start: 09/16/18 22: 51 Freq: QAM Status: Active Protocol: Document 09/17/18 07:00 [id number] (Rec: 09/17/18 11:52 [id number]) Document 09/18/18 07:00 [id number] (Rec: 09/18/18 07:43 [id number]) Document 09/19/18 07:00 MILL (Rec: 09/19/18 07:47 [email or web address] [id number]) Assessment and Plan: 1. As per discharge assessments above 2. Disposition: CBC and BMP 09/18/18 09:20 09/18/18 09:20 3. Condition on discharge, stable and improved. 4. Diet: regular diet 5. Activities: resume normal activities 6. Follow-Up: 1. PCP as needed Home Medications 3 Medication Instructions Recorded Confirmed Type Rivaroxaban [Xarelto] 20 mg PO DAILY #90 tab 06/28/15 09/16/18 History estradiol 0.05 mg/24 hr weekly 1 patch TRANSDERM WEEKLY #12 patch 05/12/1809/16 Rx transdermal patch predniSONE Tab [Deltasone Tab] 40 mg PO DAILY #6 tab 09/19/18 Rx 2. 7. Medications at the Time of Discharge: 8. Time, care, counseling and coordination of care for this discharge is greater than 30 minutes. Exam - Vitals Vital Signs: Vital Signs Temperature 98.4 F Temperature Source Temporal Artery Scan Pulse Rate [Apical] 80 Pulse Rate [Pulse Oximeter] 98 Pulse Rate 77 Respiratory Rate 24 Blood Pressure [Left Arm] 138/82 Blood Pressure [Right Arm] 118/78 Blood Pressure 130/89 Pulse Ox 95 Oxygen Flow Rate 1 Oxygen Delivery Method Room Air Height 5 ft 6 in Weight 240 lb 12.8 oz Patient Problems - Patient Problem List (1) Chest pain Current Visit: Yes Status: Acute Code(s): R07.9 - Chest pain, unspecified Category: Medical (2) Hypercoagulopathy Current Visit: No Status: Acute Onset Date: 10/19/16 Code(s): D68.59 - Other primary thrombophilia Category: Medical
== END 2018-09-19 11:36 | disposition home or self-care (01) ==
LOC: ER 18:35 → MED/SURG 18:35
PROVIDERS: ADMIT Internal Medicine; ATTEND Internal Medicine